=== PATIENT | female | born 1995 | race Caucasian/White ===

== ENCOUNTER 2017-02-09 21:03 | Emergency (ER) | payer OTHER ==
[~2017-02-09] VITALS: Ht 162.6 cm; Wt 61.2 kg
[2017-02-09 21:07] VITALS: BP 138/79
--- NOTE | 2017-02-09 22:32 | RADIOLOGY REPORT ---
EXAMINATION: XR RIGHT FOREARM AND BILATERAL WRISTS CLINICAL INFORMATION: Right forearm and bilateral wrist pain. COMPARISON: None. TECHNIQUE: AP, lateral and oblique views of the bilateral wrists. AP and lateral views of the right forearm. FINDINGS: Left wrist: There is a questionable linear lucency along the ulnar aspect of the distal left radial metaphysis, adjacent to the distal radial ulnar joint. This finding is entirely nonspecific and may represent a small nutrient channel although an acute fracture within this region cannot be entirely excluded. Carpal alignment appears grossly maintained. The first and second carpal rows are intact. Right wrist: Evaluation of the right wrist is also notable for a questionable cortical step-off along the ulnar aspect of the distal radial metaphysis, adjacent to the distal radial ulnar joint. There is a questionable band of sclerosis traversing the distal radial metaphysis. A minimally displaced or impacted fracture of the distal radial metaphysis cannot be entirely excluded. Carpal alignment appears grossly maintained. The first and second carpal rows are intact. There is moderate soft tissue swelling along the dorsum of the right wrist. Right forearm: No acute fracture or dislocation involving the proximal or mid shafts of the right radius or ulna. No radiopaque foreign bodies are identified. IMPRESSION: 1. Questionable linear lucency along the ulnar aspect of the distal left radial metaphysis, adjacent to the distal radioulnar joint. This may represent a small nutrient channel although an acute fracture within this region cannot be entirely excluded given the mechanism of injury. 2. Questionable cortical step-off along the ulnar aspect of the distal right radial metaphysis. There is also a questionable band of sclerosis traversing the distal right radial metaphysis. A fracture of the distal radius cannot be entirely excluded. There is moderate soft tissue swelling along the dorsum of the right wrist. 3. No acute fracture or dislocation involving the proximal or mid diaphyses of the right radius or ulna.
--- NOTE | 2017-02-09 23:01 | ED UPPER/LOWER EXTREMITY COMPL ---
History of Present Illness General Chief Complaint: Hand or Wrist Injury Stated Complaint: WRISTS PAIN S/P FALL Source: patient Exam Limitations: no limitations Vital Signs & Intake/Output Vital Signs & Intake/Output Vital Signs Date Time Temp Pulse Resp B/P Pulse O2 O2 Flow FiO2 Ox Delivery Rate 02/09 2107 97.6 99 18 138/79 98 Room Air ED Intake and Output 02/10 0000 02/09 1200 Intake Total Output Total Balance Patient 135 lb Weight Allergies Coded Allergies: NO KNOWN ALLERGIES (06/19/11) Triage Note: PT STATE STHAT WHILE SNOW BOARDING TODAY SHE FELL AND HAS BILATERAL WRIST FOREARM PAIN. TOOK TYLENOL Triage Nurses Notes Reviewed? yes : No Patient currently breastfeeds: No HPI: 21 yo F presenting with bilateral wrist pain s/p fall. Patient was skiing this afternoon, fell backwards with both hands extended behind her, hyperextended wrists, felt pop in right wrist, acute onset pain in bilateral wrists, persistent since that time. ROM limited by pain. No motor or sensory deficits. Denies head/neck trauma/pain, LOC, focal neurologic Sx. (RONY FAUST,CASPER) Past History Travel History Traveled to [place] past 21 day No Medical History Any Pertinent Medical History? none Neurological: NONE EENT: NONE Cardiovascular: NONE Respiratory: NONE Gastrointestinal: NONE Hepatic: NONE Renal: NONE Musculoskeletal: NONE Psychiatric: NONE Endocrine: NONE Blood Disorders: NONE Cancer(s): NONE Surgical History Surgical History: none Psychosocial History What is your primary language [place] Tobacco Use: Never used ETOH Use: denies use Illicit Drug Use: denies illicit drug use Family History Hx Contributory? No (RONY FAUST,CASPER) Review of Systems Review of Systems Constitutional: Reports: no symptoms. EENTM: Reports: no symptoms. Respiratory: Reports: no symptoms. Cardiovascular: Reports: no symptoms. Gastrointestinal/Abdominal: Reports: no symptoms. Genitourinary: Reports: no symptoms. Musculoskeletal: Denies: joint pain, muscle pain. Skin: Reports: no symptoms. Neurological/Psychological: Reports: no symptoms. Hematologic/Endocrine: Reports: no symptoms. Immunological: Reports: no symptoms. All Other Systems: Reviewed and Negative (CASPER URIBE MD) Physical Exam Physical Exam General Appearance: well developed/nourished, mild distress Head: atraumatic Eyes: Bilateral: PERRL, EOMI. Ears, Nose, Throat: normal pharynx, normal ENT inspection, hearing grossly normal Neck: normal inspection, supple, no midline tenderness Cardiovascular/Respiratory: regular rate/rhythm Back: normal inspection Skin: intact, normal color, warm/dry Lymphatic: no anterior cervical kyaw Comments: Right Wrist: Reduced ROM 2/2 pain, Diffuse TTP over wrist and distal forearm without crepitus or instability, point TTP at anatomic snuff box, 2+ radial/ ulnar pulses, no motor or sensory deficits Left Wrist: Reduced ROM 2/2 pain, Diffuse TTP over wrist without crepitus or instability, point TTP at anatomic snuff box, 2+ radial/ulnar pulses, no motor or sensory deficits (RONY FAUST,CASPER) Progress Differential Diagnosis: dislocation, fracture, sprain Plan of Care: Orders Procedure Date/time Status Durable Medical Equipment 02/09 2257 Active Current Medications Sig/Janet Start time Last Medication Dose Stop Time Status Admin Oxycodone/ 1 TAB ONCE ONE 02/09 2145 CAN Acetaminophen 02/09 2146 (Percocet) Laboratory Tests 02/09/17 2211: Urine Test Cancelled Physician MDM: 21 yo F presenting with bilateral wrist pain s/p fall backwards with wrist hyperextension. DDx: Sprain, strain, fracture, dislocation. Oxycodone given with good pain relief. Right/Left wrist and Right forearm XR as below with possible small non-displaced fractures. Given ?small Fx and concern for occult scaphoid Fx, will immobilize with bilateral thumb spica splints. Plan for orthopedic f/u in the next 2-3 days for re-evaluation. D/Solo with pain control and return precautions. D/W Dr. Abbott. MPRESSION: 1. Questionable linear lucency along the ulnar aspect of the distal left radial metaphysis, adjacent to the distal radioulnar joint. This may represent a small nutrient channel although an acute fracture within this region cannot be entirely excluded given the mechanism of injury. 2. Questionable cortical step-off along the ulnar aspect of the distal right radial metaphysis. There is also a questionable band of sclerosis traversing the distal right radial metaphysis. A fracture of the distal radius cannot be entirely excluded. There is moderate soft tissue swelling along the dorsum of the right wrist. 3. No acute fracture or dislocation involving the proximal or mid diaphyses of the right radius or ulna. (RONY FAUST,CASPER) Departure Departure Disposition: HOME OR SELF CARE Condition: Stable Clinical Impression Primary Impression: Bilateral wrist pain Referrals: PATIENT HAS NO PRIMARY CARE DR (PCP/Family) Additional Instructions: Wear thumb spica wrist splints at all times. Call to make an appointment with Dr. Florentino (Orthopedics) for early this week, discuss results of XR as copied below. Take ibuprofen for mild-moderate pain. Take percocet for severe pain. Return to the ED for any new, worsening or concerning symptoms. Wrist Right, Forearm Right, Wrist Left: IMPRESSION: 1. Questionable linear lucency along the ulnar aspect of the distal left radial metaphysis, adjacent to the distal radioulnar joint. This may represent a small nutrient channel although an acute fracture within this region cannot be entirely excluded given the mechanism of injury. 2. Questionable cortical step-off along the ulnar aspect of the distal right radial metaphysis. There is also a questionable band of sclerosis traversing the distal right radial metaphysis. A fracture of the distal radius cannot be entirely excluded. There is moderate soft tissue swelling along the dorsum of the right wrist. 3. No acute fracture or dislocation involving the proximal or mid diaphyses of the right radius or ulna. Departure Forms: Customer Survey General Discharge Information (RONY FAUST,CASPER) Resident Co-Sign Statement Statement: ED Attending supervision documentation- []x I saw and evaluated the patient. I have also reviewed all the pertinent lab results and diagnostic results. I agree with the findings and the plan of care as documented in the Resident's documentation. [] I have reviewed the ED Record and agree with the Resident's documentation. [] Additions or exceptions (if any) to the Resident's note and plan are summarized below: [] (LISSY FAUST,FERNANDO Florez)
== END 2017-02-09 23:15 ==
LOC: ERH 21:03
DX: M25.531 Pain in right wrist (principal); M25.532 Pain in left wrist
CPT/HCPCS: 73090-RT; 73110-LT; 73110-RT; 81025